=== PATIENT | male | born 1985 | race Caucasian/White ===

== ENCOUNTER 2018-12-24 18:53 | Emergency (ER) | payer OTHER ==
[2018-12-24 19:31] VITALS: BP 131/84; PULSE 81; TEMP 97.7; BMI 31.0
[2018-12-24] MEDS ORDERED: LIDOCAINE HCL 1%, 10 MG/ML (50 mL VIAL) SQ ONE (20:22)
[2018-12-24] MEDS ORDERED: LIDOCAINE HCL 2% (20ML MULTI-DOSE VIAL) NR ONE (20:24)
--- NOTE | 2018-12-24 20:59 | PDOC ---
History of Present Illness - General Chief Complaint: Injury Stated Complaint: FALL/RT HAND INJURY Time Seen by Provider: 12/24/18 19:39 - History of Present Illness Initial Comments: 12/24/18 20:53 33-year-old male without comorbidities presents for evaluation of right hand pain after punching a wall a week ago. Past History - Past Medical History Allergies/Adverse Reactions: Allergies Allergy/AdvReac Type Severity Reaction Status Date / Time No Known Allergies Allergy Verified 12/24/18 19:31 Home Medications: Ambulatory Orders Ibuprofen [Advil -] 200 mg PO QID 12/24/18 COPD: No - Surgical History Appendectomy: Yes - Immunization History Immunization Up to Date: No - Suicide/Smoking/Psychosocial Hx Smoking History: Never smoked Have you smoked in the past 12 months: No Information on smoking cessation initiated: No Hx Alcohol Use: No Drug/Substance Use Hx: No Substance Use Type: None Review of Systems - Review of Systems Musculoskeletal: Yes: See HPI, Joint Pain *Physical Exam - Vital Signs Last Vital Signs Temp Pulse Resp BP Pulse Ox 97.7 F 81 16 131/84 98 12/24/18 19:28 12/24/18 19:28 12/24/18 19:28 12/24/18 19:28 12/24/18 19:28 - Physical Exam Comments: 12/24/18 20:54 Right hand skin color and temperature are normal. The swelling about the ulnar aspect of the right hand on the dorsal surface. Tenderness about the neck of the fifth metacarpal. FDS and FDP work independently on all digits. No gross sensorimotor deficits. 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 No malrotation. NVID Moderate Sedation - Procedure Monitoring Vital Signs: Procedure Monitoring Vital Signs Temperature 97.7 F 12/24/18 19:28 Pulse Rate 81 12/24/18 19:28 Respiratory Rate 16 12/24/18 19:28 Blood Pressure 131/84 12/24/18 19:28 O2 Sat by Pulse Oximetry (%) 98 12/24/18 19:28 ED Treatment Course - RADIOLOGY Radiology Studies Ordered: Category Date Time Status HAND- RIGHT [RAD] Stat Radiology 12/24/18 19:51 Taken HAND- RIGHT [RAD] Stat Radiology 12/24/18 20:40 Taken - Medications Given in the ED: ED Medications Discontinued Medications Generic Name Dose Route Start Last Admin Trade Name Freq PRN Reason Stop Dose Admin Lidocaine HCl 5 ml 12/24/18 20:22 12/24/18 20:37 Xylocaine 1% SQ 12/24/18 20:23 5 ml ONCE ONE Administration Medical Decision Making - Medical Decision Making 12/24/18 20:55 X-rays were reviewed. There is a fifth metacarpal fracture which is about 45 angulated on the lateral view. Under aseptic technique 8 mL of 1% lidocaine without epinephrine was introduced into the hematoma of the right fifth metacarpal fracture. After appropriate anesthesia traction and countertraction were applied to the area of the fracture until reduction was had. She was placed in an ulnar gutter splint. Patient was neurovascularly intact postreduction. Postreduction x-ray show adequate alignment of the fracture. I will give him an surgery follow-up. This was all tolerated well. *DC/Admit/Observation/Transfer Diagnosis at time of Disposition: Metacarpal bone fracture - Discharge Dispostion Disposition: HOME Condition at time of disposition: Stable Decision to Admit order: No - Referrals Referrals: Alex Cahnce MD [Staff Physician] - - Patient Instructions Printed Discharge Instructions: DI for a Hand Fracture, Hand Fracture Additional Instructions: Return to the emergency room for worsening symptoms. Tylenol and Motrin as directed for pain. Follow-up with hand surgery in 1-2 days for further evaluation and treatment options. Please keep the splint on and intact clean and dry, keep the limb elevated above your heart as much as possible to prevent swelling. - Post Discharge Activity
== END 2018-12-24 21:06 | disposition home or self-care (01) ==
LOC: JERFT 18:53
PROC: 0PSPXZZ Reposition Right Metacarpal, External Approach (ICD-10-PCS; principal; 2018-12-24)
PROC: 2W3CX1Z Immobilization of Right Lower Arm using Splint (ICD-10-PCS; 2018-12-24)
DX: S62.336A Displaced fracture of neck of fifth metacarpal bone, right hand, initial encounter for closed fracture (principal); W22.09XA Striking against other stationary object, initial encounter; Y93.89 Activity, other specified; Y92.89 Other specified places as the place of occurrence of the external cause; Y99.8 Other external cause status
CPT/HCPCS: 26605; 29125; 73130-TC-RT-FY; 99282-25

== ENCOUNTER 2019-04-20 13:02 | Emergency (ER) | payer OTHER ==
[2019-04-20 13:11] VITALS: BMI 31.0
[2019-04-20] MEDS ORDERED: ACETAMINOPHEN 1000 MG/100 ML VIAL (NON FORMULARY) IVPB ONE (14:12)
[2019-04-20] MEDS ORDERED: SODIUM CHLORIDE 0.9% 500 ML INFUS.BAG IV ONE (14:12)
[2019-04-20] MEDS ORDERED: FAMOTIDINE 20 MG/50 ML IVPB 20 MG/50 ML MG IVPB ONE ×2 (14:12→14:21)
[2019-04-20] MEDS ORDERED: MAG HYDROX/AL HYDROX/SIMETH 30 ML UNIT-DOSE CUP PO ONE (14:12)
[2019-04-20] MEDS ORDERED: ACETAMINOPHEN INJECTION 100 ML IVPB ONE (14:20)
[2019-04-20] MEDS ORDERED: MAG HYDROX/AL HYDROX/SIMETH 30 ML UNIT-DOSE CUP ONE (14:21)
[2019-04-20 14:45] LABS: MCHC 33.4 g/dl (32.0-35.9)
[2019-04-20 14:53] LABS: EOS % 1.7 % (0-4.5); HEMATOCRIT 42.3 % (35.4-49); HEMOGLOBIN 14.1 GM/dL (11.7-16.9); LYMPH % 26.5 % (8-40); MCH 29.8 pg (25.7-33.7); MEAN CELL VOLUME 89.1 fl (80-96); MEAN PLT VOLUME 10.6 fl (7.5-11.1); MONO % 6.9 % (3.8-10.2); NEUT % 63.9 % (42.8-82.8); PLATELET COUNT 175 K/MM3 (134-434); RBC 4.75 M/mm3 (4.00-5.60); RDW 13.7 % (11.9-15.9); WHITE BLOOD COUNT 5.2 K/mm3 (4.0-10.0)
[2019-04-20 15:08] LABS: ALBUMIN 4.2 g/dl (3.4-5.0); BILIRUBIN,TOTAL 0.4 mg/dL (0.2-1); BLOOD UREA NITROGEN 11.8 mg/dL (7-18); CALCIUM 9.1 mg/dL (8.5-10.1); CREATININE 0.8 mg/dL (0.55-1.3); POTASSIUM 4.2 mmol/L (3.5-5.1); TOT PROT 7.5 g/dl (6.4-8.2)
--- NOTE | 2019-04-20 15:58 | PDOC ---
History of Present Illness - General Chief Complaint: Pain Stated Complaint: ABD. PAIN Time Seen by Provider: 04/20/19 13:51 - History of Present Illness Initial Comments: Ethan Ruiz is a 34yo otherwise healthy man who presents with LUQ pain and two episodes of bilious vomiting today. He states that he was feeling fine yesterday, ate at home with his family (no one else has symptoms), and went out with friends to have a few drinks. He states that he only had "a little " to drink and was feeling well when he got home. This morning, he had two episode of vomiting with associated heartburn and nausea followed by 10/10, sharp left upper quadrant and epigastric pain. He denies fever, change in bowel habits, sick contacts, frequent abdominal pain or heartburn, or any other recent symptoms. Past History - Past Medical History Allergies/Adverse Reactions: Allergies Allergy/AdvReac Type Severity Reaction Status Date / Time No Known Allergies Allergy Verified 04/20/19 13:10 Home Medications: Ambulatory Orders Ibuprofen [Advil -] 200 mg PO QID 12/24/18 Famotidine [Pepcid -] 20 mg PO DAILY #30 tablet 04/20/19 Mag Hydrox/Al Hydrox/Simeth [Mylanta Suspension -] 30 ml PO Q6H PRN #1 bottle COPD: No - Surgical History Appendectomy: Yes - Immunization History Immunization Up to Date: No - Suicide/Smoking/Psychosocial Hx Smoking History: Never smoked Have you smoked in the past 12 months: No Hx Alcohol Use: No Drug/Substance Use Hx: No Substance Use Type: None Review of Systems - Review of Systems Comments:: General: No fevers, no chills, no weight or appetite change, no malaise HEENT: No changes in vision, no changes in hearing, no congestion, no sore throat CV: No chest pain, no palpitations, no LE edema Pulm: No SOB, no cough, no wheezing GI: See HPI : No frequency, no urgency, no dysuria Musc: No back pain, no joint swelling, no recent injury Skin: No rash, no lesions, no erythema Endo: No excessive thirst, no heat/cold intolerance Heme: No unusual bruising or bleeding, no swollen glands Neuro: No syncope, no numbness/tingling, no focal weakness Vasc: No claudication Psych: No recent change in mood, no SI or HI *Physical Exam - Vital Signs Last Vital Signs Temp Pulse Resp BP Pulse Ox 97.4 F L 85 18 130/87 96 04/20/19 13:08 04/20/19 13:08 04/20/19 13:08 04/20/19 13:08 04/20/19 13:08 - Physical Exam Comments: General: Uncomfortable but in no acute distress HEENT: PERRL, EOMI, MMM, voice normal, normal neck ROM Cards: RRR, no murmur appreciated Pulm: Comfortable on room air, clear to auscultation bilaterally Abd: Soft, nondistended. TTP in LUQ : No CVA tenderness Ext: Atraumatic. No LE edema. ROM intact Vasc: Extremities WWP Skin: Normal color, no rashes or lesions Neuro: A&Ox3, CN grossly intact, normal speech, motor/sensory grossly intact and symmetric Psych: Mood appropriate to situation ED Treatment Course - LABORATORY CBC & Chemistry Diagram: 04/20/19 14:30 04/20/19 14:30 - ADDITIONAL ORDERS Additional order review: Laboratory Results 04/20/19 14:30 Sodium 138 Potassium 4.2 Chloride 104 Carbon Dioxide 29 Anion Gap 6 L BUN 11.8 Creatinine 0.8 Est GFR (CKD-EPI)AfAm 136.99 Est GFR (CKD-EPI)NonAf 118.20 Random Glucose 110 H Calcium 9.1 Total Bilirubin 0.4 AST 83 H ALT 134 H Alkaline Phosphatase 71 Total Protein 7.5 Albumin 4.2 Lipase 153 04/20/19 14:30 RBC 4.75 MCV 89.1 MCHC 33.4 RDW 13.7 MPV 10.6 Neutrophils % 63.9 D Lymphocytes % 26.5 D Monocytes % 6.9 Eosinophils % 1.7 D Basophils % 1.0 - Medications Given in the ED: ED Medications Discontinued Medications Generic Name Dose Route Start Last Admin Trade Name Hever PRN Reason Stop Dose Admin Acetaminophen 1,000 mg 04/20/19 14:12 04/20/19 14:45 Ofirmev Injection - IVPB 04/20/19 14:13 1,000 mg ONCE ONE Administration Al Hydroxide/Mg Hydroxide 30 ml 04/20/19 14:12 04/20/19 14:45 Mylanta Oral Suspension - PO 04/20/19 14:13 30 ml ONCE ONE Administration Famotidine/Sodium Chloride 20 mg in 50 mls @ 100 mls/hr 04/20/19 14:12 14:45 Pepcid 20 Mg Premixed Ivpb - IVPB 04/20/19 14:41 100 mls/hr ONCE ONE Administration Sodium Chloride 1,000 ml 04/20/19 14:12 04/20/19 14:45 Normal Saline - IV 04/20/19 14:13 1,000 ml ONCE ONE Administration Medical Decision Making - Medical Decision Making 04/20/19 14:10 Ethan Ruiz is a 34yo otherwise healthy man who presents with LUQ pain and two episodes of bilious vomiting today. He was feeling well yesterday and went out with friends to drink last night. - Ddx includes gastritis, pancreatitis, cholecystitis or cholelithiasis, PUD. Less likely gastroenteritis or other intraabdominal pathology given no change in bowel habits, no fever, no dysuria. - CBC, CMP, lipase - Famotidine, maalox, acetaminophen, IVF 04/20/19 15:58 - Labs reviewed. Unremarkable. No concerning abnormalities - Feels somewhat improved after meds; states pain is now 05/2404/20/19 16:53 - Protonix given for continued pain. Will reassess - Will likely d/c home with GI follow up if pain improves 04/20/19 17:34 - Feels improved, requesting to be discharged home - Discussed home care, follow up, and return precautions. Will provide information to set up primary care and GI follow up. Pt states understanding and agreement. Discussed with Dr Suarez. Oralia Major PGY2 *DC/Admit/Observation/Transfer Diagnosis at time of Disposition: Stomach pain - Discharge Dispostion Disposition: HOME Condition at time of disposition: Stable Decision to Admit order: No - Prescriptions Prescriptions: Famotidine [Pepcid -] 20 mg PO DAILY #30 tablet Mag Hydrox/Al Hydrox/Simeth [Mylanta Suspension -] 30 ml PO Q6H PRN #1 bottle PRN Reason: Nausea And/Or Vomiting - Referrals Referrals: Elena Pinto MD [Staff Physician] - [facility] [place] [[place] Group] - Patient Instructions Printed Discharge Instructions: DI for Gastritis, GERD Diet Additional Instructions: Discharge Instructions: You were seen in the emergency department with stomach pain and vomiting. Your blood tests did not show any concerning abnormalities or indicate problems with your pancreas, liver, gallbladder, or kidneys. Your symptoms are probably due to gastritis, or inflammation of the stomach. Home Care and Follow Up: - You have been prescribed a medication called famotidine (pepcid). This is an anti-acid medication. You can take it 1-2 times per day until you are seen for follow up. - You have also been prescribed Maalox. This may be taken as needed for nausea, vomiting, or stomach pain - It is OK if you are not hungry or interested in eating today, but make sure you are staying well hydrated. - When you start eating again, start with bland foods such as bread, rice, crackers, bananas, etc. Avoid spicy, greasy/oily or dairy-based foods as well as alcohol and caffeine. - You should follow up with a primary care doctor within the next week. If you need to establish care, you have been referred to the [facility] internal medicine clinic. - Follow up with GI (gastroenterology) within the next 1-2 weeks, especially if you recurrent symptoms. You have been given contact information for Dr Pinto. - Seek immediate care if you have worsening symptoms, you are unable to tolerate food or liquids, you become dehydrated, you have continued vomiting and see blood in your vomit, or you have any other medical emergency. Instrucciones de descarga: Usted fue atendido en el servicio de urgencias con dolor de estmago y vmitos. Cora anlisis de peter no mostraron anomalas preocupantes ni indicaron problemas con greenwood pncreas, hgado, vescula biliar o riones. Cora sntomas probablemente se deban a gastritis o inflamacin del estmago. Atencin domiciliaria y seguimiento: - Le godinez recetado un medicamento llamado famotidine (pepcid). Lisette es un medicamento anticido. Puede tomarlo 1 o 2 veces por da hasta que lo vean para greenwood seguimiento. - Tamsofy te godinez recetado Maalox. Se puede yuko segn sea necesario para las nuseas, vmitos o dolor de estmago. - Est britt si no tiene hambre o no est interesado en comer hoy, marce asegrese de mantenerse britt hidratado. - Cuando comience a comer nuevamente, comience con alimentos blandos kizzy walters, arroz, galletas, bananas, etc. Evite los alimentos picantes, grasosos / grasosos o lcteos, as kizzy el alcohol y la cafena. - Debe hacer un seguimiento con un mdico de atencin primaria dentro de la prxima semana. Si necesita establecer atencin, lo godinez remitido a la clnica de medicina interna de [facility]. - Realice un seguimiento con GI (gastroenterologa) en las prximas 1 a 2 semanas, especialmente si presenta sntomas recurrentes. Usted medel recibido informacin de contacto para el Dr. Pinto. - Busque atencin inmediata si tiene sntomas que empeoran, no puede tolerar los alimentos o los lquidos, se deshidrata, contina vomitando y ve peter en greenwood vmito, o tiene cualquier otra emergencia mdica. - Post Discharge Activity
[2019-04-20] MEDS ORDERED: SODIUM CHLORIDE 1,000 ML IV STA (16:30)
[2019-04-20] MEDS ORDERED: PANTOPRAZOLE SODIUM 40 MG VIAL IVPUSH ONE (16:31)
--- NOTE | 2019-04-20 16:37 | PDOC ---
Documentation entered by Janiya Roland SCRIBE, acting as scribe for Barbara Suarez MD. Barbara Suarez MD: This documentation has been prepared by the Luan nevarez Mackenzie, SCRIBE, under my direction and personally reviewed by me in its entirety. I confirm that the documentation accurately reflects all work , treatment, procedures, and medical decision making performed by me. Attending Attestation - Resident Resident Name: Oralia Major - ED Attending Attestation I have performed the following: I have examined & evaluated the patient, The case was reviewed & discussed with the resident, I agree w/resident's findings & plan, Exceptions are as noted - HPI HPI: 34 yo M no significant PMH presents with LUQ and L mid-abdominal pain associated with two episodes of bilious vomiting today. He states he did not eat anything bad yesterday. Drank alcohol last night. No fever, chills, diarrhea , sick contacts. - Physicial Exam PE: GENERAL: Awake, alert, and fully oriented, in no acute distress HEAD: No signs of trauma EYES: PERRLA, EOMI, sclera anicteric, conjunctiva clear ENT: Auricles normal inspection, hearing grossly normal, nares patent, oropharynx clear without exudates. Dry mucosa NECK: Normal ROM, supple, no lymphadenopathy, JVD, or masses LUNGS: Breath sounds equal, clear to auscultation bilaterally. No wheezes, and no crackles HEART: Regular rate and rhythm, normal S1 and S2, no murmurs, rubs or gallops ABDOMEN: Soft, +RUQ and R mid-abdominal tenderness, normoactive bowel sounds. No guarding, no rebound. No masses EXTREMITIES: Normal range of motion, no edema. No clubbing or cyanosis. No cords, erythema, or tenderness NEUROLOGICAL: Cranial nerves II through XII grossly intact. Normal speech, normal gait. Motor and sensation intact SKIN: Warm, dry, normal turgor, no rashes or lesions noted. - Medical Decision Making 04/20/19 16:33 Pt with stomach cramping and multiple episodes of vomiting, was out drinking last night. Suspect this is alcoholic gastritis vs GERD vs PUD. Pt received pepcid, tylenol, and maalox with IV fluids with some improvement. Will give a PPI to attempt to give additional relief.
[2019-04-20] MEDS ORDERED: PANTOPRAZOLE SODIUM 40 MG VIAL ONE (16:51)
[2019-04-20 18:23] VITALS: BP 125/63; PULSE 71; TEMP 97.6
== END 2019-04-20 18:23 | disposition home or self-care (01) ==
LOC: JER 13:02
PROC: 3E033NZ Introduction of Analgesics, Hypnotics, Sedatives into Peripheral Vein, Percutaneous Approach (ICD-10-PCS; principal; 2019-04-20)
PROC: 3E033GC Introduction of Other Therapeutic Substance into Peripheral Vein, Percutaneous Approach (ICD-10-PCS; 2019-04-20)
PROC: 3E0337Z Introduction of Electrolytic and Water Balance Substance into Peripheral Vein, Percutaneous Approach (ICD-10-PCS; 2019-04-20)
DX: R10.9 Unspecified abdominal pain (principal)
CPT/HCPCS: 36415; 80053; 83690; 85025; 96361; 96365; 96375; 99281-25; J0131; J7030

== ENCOUNTER 2024-05-31 14:40 | Emergency (ER) | payer OTHER ==
[2024-05-31 15:58] VITALS: BP 129/92; PULSE 87; RESP 18; TEMP 98.1; BMI 30.4
[2024-05-31] MEDS ORDERED: CEPHALEXIN MONOHYDRATE 500 MG CAPSULE (UD) ONE (16:01)
[2024-05-31] MEDS ORDERED: ACETAMINOPHEN 500 MG TABLET (FP) ONE (16:01)
[2024-05-31] MEDS: CEPHALEXIN MONOHYDRATE 500 MG CAPSULE (UD) PO ONE (16:11)
[2024-05-31] MEDS: ACETAMINOPHEN 500 MG TABLET (FP) PO ONE (16:12)
== END 2024-05-31 16:15 | disposition home or self-care (01) ==
LOC: FER 14:40
PROC: 0XQSXZZ Repair Right Ring Finger, External Approach (ICD-10-PCS; principal; 2024-05-31)
PROC: 2W3JX1Z Immobilization of Right Finger using Splint (ICD-10-PCS; 2024-05-31)
DX: S61.214A Laceration without foreign body of right ring finger without damage to nail, initial encounter (principal); W26.8XXA Contact with other sharp object(s), not elsewhere classified, initial encounter
CPT/HCPCS: 73130-TC-RT-FY; 99283-25